=== PATIENT | male | born 1945 | race Asian ===

== ENCOUNTER 2018-08-20 20:32 | Emergency (ER) | payer SELFPAY ==
[~2018-08-20] VITALS: Ht 162.6 cm; Wt 49.9 kg
[2018-08-20 21:52] VITALS: BP 154/81
[2018-08-20] MEDS ORDERED: methylPREDNISolone SOD SUCC 125 MG/2 ML VL IM ONE (22:15)
[2018-08-20] MEDS ORDERED: HYDROcodone-ACET 10/325MG TAB PO ONE (22:15)
== END 2018-08-20 23:33 | disposition home or self-care (01) ==
LOC: ER 20:37
DX: S33.5XXA Sprain of ligaments of lumbar spine, initial encounter (principal); X50.0XXA Overexertion from strenuous movement or load, initial encounter; Y93.89 Activity, other specified; Y99.8 Other external cause status; Y92.89 Other specified places as the place of occurrence of the external cause
CPT/HCPCS: 72131; 93005; 96372; 99284; J2930